=== PATIENT | male | born 1990 | race Caucasian/White ===

== ENCOUNTER 2017-05-11 16:26 | Emergency (ER) | payer SELFPAY ==
[2017-05-11 16:27] VITALS: BP 152/80; PULSE 99; RESP 16; TEMP 36.6; O2SAT 99; BMI 22.1
--- NOTE | 2017-05-11 17:15 | ED.DEP ---
ED Disposition - Plan for ED Patient: Chief Complaint: Dental Instructions: ED Tooth Pain Prescriptions: Naproxen [Naprosyn] 500 mg PO BID PRN #20 tablet Penicillin V Potassium 500 mg PO 4X/DAY #40 tablet Referrals: Care Physician,No Primary [Primary Care Provider] - Daria Bettencourt [NON-STAFF] -
--- NOTE | 2017-05-11 17:26 | ED.DCSUM_ITS ---
- ER Visit Summary Date of Service: 05/11/17 Chief Complaint: Dental pain History of Present Illness: The patient is a 26 M presenting with dental pain ?2 -3 days. Patient complains of left lower molar tenderness. He has an appointment with Daria lawrence tomorrow. He denies fever or swelling. He states he has been using Orajel with some improvement. Denies other complaints. Physical Examination: Vitals are stable. Patient is afebrile. Alert no acute distress. HEENT exam left lower molar decay and tenderness. No surrounding fluctuance. No sublingual edema. Neck is supple. Lungs are clear and equal bilaterally. Heart is regular rate and rhythm. Skin is warm and dry. Remainder of exam is unremarkable. Emergency Department Course and Treatment: Patient is given a prescription for Naprosyn, penicillin. Advised to keep his dental appointment tomorrow. Advised return ED for worsening complaints. Disposition: Discharge home Impression: Odontalgia This note was generated with [employer] dictation software. It may contain incorrect words, spelling, and punctuation that were not noted in review of the chart prior to signing ED Disposition - Plan for ED Patient: Chief Complaint: Dental Instructions: ED Tooth Pain Prescriptions: Naproxen [Naprosyn] 500 mg PO BID PRN #20 tablet Penicillin V Potassium 500 mg PO 4X/DAY #40 tablet Referrals: Daria Bettencourt [NON-STAFF] - Care Physician,No Primary [Primary Care Provider] -
== END 2017-05-11 17:30 | disposition home or self-care (01) ==
LOC: ED 17:25
PROVIDERS: Emergency Provider Emergency Medicine
DX: K08.89 Other specified disorders of teeth and supporting structures (principal); K02.9 Dental caries, unspecified; Z72.0 Tobacco use
CPT/HCPCS: 99282

== ENCOUNTER 2017-07-07 18:28 | Emergency (ER) | payer SELFPAY ==
[2017-07-07 18:28] VITALS: BP 152/98; PULSE 63; RESP 20; TEMP 36.6; O2SAT 98; BMI 22.1
[2017-07-07] MEDS: Dicyclomine 20 MG/2 ML Vial IM (19:29)
[2017-07-07] MEDS: Ketorolac 60 MG/2 ML Vial IM (20:15)
--- NOTE | 2017-07-07 21:14 | NURSING ---
PT IS REFUSING ALL OF HIS TEST AND ASKED TO BE SENT HOME WITH THE MEDICATION HE WAS PRESCRIBED THE LAST TIME.
--- NOTE | 2017-07-07 21:16 | ED.DCSUM_ITS ---
- ER Visit Summary Date of Service: 07/07/17 Chief Complaint: Abdominal pain History of Present Illness: The patient is a 26 M who states that yesterday he ate some pizza with banana peppers on it. He states that and a half hour he was having some diarrhea and gas. States that he has had small squirts of diarrhea ever since. He notes a cramping abdominal pain that is severe. He states that about 3 and half hours prior to arrival he was able to eat some hamburger helper. He said 2 glasses of milk 2 glasses of water glass of tea. He has not been vomiting. Physical Examination: Afebrile vital signs are stable Gen: Well-nourished well-developed patient is moving all around the bed almost in a flopping-like manner. Head: Normocephalic atraumatic Eyes: Perrl EOMI ENT: TMs clear no rhinorrhea moist mucous membranes Neck: Supple no lymphadenopathy no JVD nontender CVS: Regular rate rhythm no murmurs normal S1-S2 Respiratory: No distress clear to auscultation bilaterally chest nontender Abdomen: Soft tender to palpation diffusely out of proportion to the examination nondistended normal bowel sounds no masses Back: Nontender Extremity: Nontender no edema Skin: Normal color no rash Neuro: alert orientated ?3 CN II-XII intact normal strength sensation reflexes gait cerebellar Psych: Normal affect normal mood Test Results: Refused Emergency Department Course and Treatment: Patient was given a dose of Bentyl. This did not relieve his symptoms. He was given a dose of Toradol. Patient states that this did not relieve his symptoms. During which time that he was receiving his medications I did review several of his prior ER visits. Because his symptoms were not relieved I went ahead and ordered basic labs and a CT scan which he has refused stating that he wants to get a prescription for what he received the last time he was here with this. That was actually Bentyl which the patient states did nothing for him. But this is what the patient wanted so I will give him a prescription for Bentyl. I will have him sign out AGAINST MEDICAL ADVICE. I believe he has the capacity to make this decision. Impression:. 1. Acute abdominal pain 2. Left AGAINST MEDICAL ADVICE This note was generated with [employer] dictation software. It may contain incorrect words, spelling, and punctuation that were not noted in review of the chart prior to signing ED Disposition - Plan for ED Patient: Disposition: Home or Assisted Living Chief Complaint: Abd Pain Instructions: ED Abdominal Pain Unkn Cause Prescriptions: Dicyclomine HCl [Bentyl] 20 mg PO TIDAC #20 cap Referrals: Piedad Marin MD [STAFF PHYSICIAN] - (call to arrange follow up)
[2017-07-07 21:17] LABS: Absolute Lymphocyte Count 3.02 X10^3/ul (0.83-4.51); Absolute Neutrophil Count 5.7 X10^3/uL (2.0-7.7); Basophil# 0.02 X10^3/uL; Basophil% 0.2 % (0-1); Eosinophil# 0.05 X10^3/uL; Eosinophils% 0.5 % (0-5); Hematocrit 45.2 % (40-54); Hemoglobin 15.3 g/dl (13.0-16.5); Lymphocyte # 3.02 X10^3/ul (4.0); Lymphocyte % 31.6 % (19-41); Mean Corp Hgb Conc 33.8 g/gl (32-36); Mean Corpuscular Volume 85.6 fL (80-94); Mean Platelet Vol. 9.6 fl (6.2-12.0); Monocyte# 0.73 X10^3/uL; Monocyte% 7.6 % (0-10); Neutrophil # 5.73 X10^3/uL (2.7-7.7); Platelet Count 345 K/mm3 (150-450); RBC Distribution Width CV 13.1 % (11.6-14.6); Red Blood Count 5.28 M/mm3 (4.6-6.2); White Blood Count 9.6 K/mm3 (4.4-11.0)
[2017-07-07 21:21] LABS: POSITIVE COUNT NO; POSITIVE DIFFERENTIAL NO; POSITIVE MORPHOLOGY NO
[2017-07-07 21:24] LABS: ALB/GLOB Ratio 1.1 RATIO (0.9-2.4); AST(SGOT) 18 U/L (15-37); Alanine Aminotransfer ALT/SGPT 21 U/L (16-61); Albumin, Serum 4.1 g/dL (3.2-5.0); Alkaline Phosphatase 74 U/L (45-117); Anion Gap 6 (5-15); BUN 10 mg/dL (7-18); BUN/Creat Ratio 9.3 RATIO (10-20); Calcium,Total 9.4 mg/dL (8.5-10.1); Chloride 104 mmol/L (98-107); Creatinine, Serum 1.07 mg/dL (0.70-1.30); EST Glomerular Filtration Rate 90 mL/min (>60); Est Glom Filt Rate - Afr Amer 108 mL/min (>60); Estimated Creatinine Clearance 102.45 ml/min; Globulin 3.7 g/dL (2.2-4.2); Glucose 95 mg/dL (74-106); Lipase 124 U/L (73-393); Protein, Total 7.8 g/dL (6.4-8.2); Sodium Level 138 mmol/L (136-145)
--- NOTE | 2017-07-07 21:25 | NURSING ---
PT LEFT AMA.
[2017-07-07 21:26] VITALS: RESP 20
== END 2017-07-07 21:26 | disposition left against medical advice (07) ==
PROVIDERS: Emergency Provider Emergency Medicine
DX: R10.9 Unspecified abdominal pain (principal); R19.7 Diarrhea, unspecified; Z72.0 Tobacco use
CPT/HCPCS: 80053; 83690; 85025; 96372; 99283; A4216

== ENCOUNTER 2017-07-08 19:25 | Emergency (ER) | payer SELFPAY ==
[2017-07-08 19:26] VITALS: BP 131/74; PULSE 69; RESP 18; TEMP 37.1; O2SAT 99
--- NOTE | 2017-07-08 20:35 | ED.VISSUMM ---
- ER Visit Summary Date of Service: 07/08/17 Chief Complaint: Abdominal pain History of Present Illness: The patient is a 26 M complaining of abdominal pain after 3 days after eating pizza with spicy peppers on it. States it is a crampy sensation with a lot of gas. He is actually seen in the ER yesterday. Had negative labs including a CBC, BMP, liver and lipase. He returned today to be reevaluated. He stated they talked about a CAT scan yesterday but does not believe that he needs that. He is having loose stools but no vomiting. No melena. No fever. No dysuria. He has never had any abdominal surgeries. Physical Examination: Well-appearing young male. Vital signs are stable and afebrile. H EENT exam unremarkable. Neck nontender no lymphadenopathy. Lungs clear to auscultation bilaterally. Heart regular rate and rhythm no murmur. Abdomen is soft nondistended normal bowel sounds no peritoneal signs. He has no epigastric pain. He has no right upper quadrant tenderness or Tolliver's sign. He has no right lower quadrant or McBurney's point tenderness. There is no signs of a hernia or mass. There is no signs of obstruction. The pain is periumbilical. But is not really reproducible. Moving all 4 extremities. Back exam nontender. Neurologically is awake and alert. Test Results: Clinically the patient does not need a CAT scan. I reviewed all his labs from yesterday which were negative. He denied discussed and is comfortable not getting any further testing. Emergency Department Course and Treatment: Treated with p.o. Pepcid. Treatment Plan: Charge to home on Prilosec prescription and Mylicon. Disposition: Discharge Impression: Abdominal pain secondary to gastritis This note was generated with [employer] dictation software. It may contain incorrect words, spelling, and punctuation that were not noted in review of the chart prior to signing ED Disposition - Plan for ED Patient: Chief Complaint: Abd Pain Referrals: Care Physician,No Primary [Primary Care Provider] -
--- NOTE | 2017-07-08 20:40 | DCINST.ED_ITS ---
ED Disposition - Plan for ED Patient: Disposition: Home or Assisted Living Chief Complaint: Abd Pain Instructions: ED Abdominal Pain Unkn Cause, ED Gastritis Prescriptions: Omeprazole [Prilosec] 20 mg PO BID #20 cap SimETHICONE [Mylicon] 80 mg PO 4X/DAY #14 tab Referrals: Care Physician,No Primary [Primary Care Provider] - 1-2 Days if not improving Additional Instructions: Clementon diet increase slowly. I suspect that the spicy peppers upset your stomach causing a gastritis. The Prilosec will help calm the stomach down. And the Mylicon will help with gas. Return to the ER if you are feeling worse, develop vomiting or black or bloody stool or fever.
[2017-07-08] MEDS: Famotidine 20 MG Tablet 40 MG PO (20:45)
[2017-07-08 20:46] VITALS: RESP 18
[2017-07-08 22:20] VITALS: PULSE 124; RESP 30
== END 2017-07-08 20:47 | disposition home or self-care (01) ==
PROVIDERS: Emergency Provider Emergency Medicine
DX: K29.70 Gastritis, unspecified, without bleeding (principal); Z72.0 Tobacco use
CPT/HCPCS: 99283

== ENCOUNTER 2018-02-28 14:21 | Emergency (ER) | payer SELFPAY ==
[2018-02-28 14:21] VITALS: BP 141/55; PULSE 98; RESP 16; TEMP 36.3; O2SAT 97; BMI 23.6
--- NOTE | 2018-02-28 15:08 | ED.DCSUM_ITS ---
- ER Visit Summary Date of Service: 02/28/18 Chief Complaint: Dental pain History of Present Illness: The patient is a 27 M presents to the emergency department dental abscess. Patient states that he was recently treated for dental abscess by [facility] lawrence. He was on amoxicillin. He finished 10 days ago. He states that resolved. Over the past 2 days, has had increased swelling and pain. He denies any trouble speaking or swallowing. He states today, it broke open. He had some purulent drainage. He denies any fevers or chills. The patient takes no daily medications. Physical Examination: Exam is relatively unremarkable. Patient does have an abscess at the base of tooth 22. It is draining. His submental space is soft. He has no trismus. There is no stridor. His neck is supple. Test Results: [] Emergency Department Course and Treatment: The patient has a spontaneously draining dental abscess. He is already established with dentistry. He will be started on penicillin. He is given his first dose here. He was counseled on concerning symptoms and reasons to return. He will be discharged home. Treatment Plan: [] Disposition: Discharge Impression: Dental abscess This note was generated with [employer] dictation software. It may contain incorrect words, spelling, and punctuation that were not noted in review of the chart prior to signing ED Disposition - Plan for ED Patient: Disposition: Home or Assisted Living Chief Complaint: Dental Instructions: ED Abscess Dental Prescriptions: RX: Naproxen [Naprosyn] 500 mg PO BID PRN #20 tab RX: Penicillin V Potassium 500 mg PO 4X/DAY #40 tab Referrals: Care Physician,No Primary [Primary Care Provider] -
[2018-02-28] MEDS: Penicillin Vk 250 MG Tablet 500 MG PO (15:15)
== END 2018-02-28 15:21 | disposition home or self-care (01) ==
LOC: ED 15:20
PROVIDERS: Emergency Provider Emergency Medicine
DX: K04.7 Periapical abscess without sinus (principal); Z72.0 Tobacco use
CPT/HCPCS: 99283

== ENCOUNTER 2018-03-17 23:39 | Emergency (ER) | payer SELFPAY ==
[2018-03-17 23:41] VITALS: BP 128/81; PULSE 72; RESP 18; TEMP 36.9; O2SAT 96; BMI 22.4
--- NOTE | 2018-03-18 00:17 | ED.DCSUM_ITS ---
- ER Visit Summary Date of Service: 03/18/18 Chief Complaint: Abdominal pain History of Present Illness: The patient is a 27 M who presents with chief complaint of abdominal pain but then immediately states I really just here for a work note. He has a history of epigastric abdominal pain when he eats spicy or greasy food. He states it was worse last night but actually feels better and he only has mild discomfort currently. Denies any associated nausea vomiting diarrhea chest pain shortness of breath. He states work was supposed to start 10 minutes ago so he presented here for a note. Physical Examination: Afebrile vitals are normal Moist mucous membranes Heart regular rate and rhythm Lungs are clear Abdomen soft, mild epigastric tenderness no guarding no rebound Test Results: Deferred Emergency Department Course and Treatment: Patient refuses any diagnostic workup. He states that currently he is feeling better and he has had prior similar symptoms and does not want any workup but just presented for a work note. Patient discharged Treatment Plan: [] Disposition: Discharge Impression: Epigastric abdominal pain This note was generated with [employer] dictation software. It may contain incorrect words, spelling, and punctuation that were not noted in review of the chart prior to signing ED Disposition - Plan for ED Patient: Chief Complaint: Abd Pain Referrals: Care Physician,No Primary [Primary Care Provider] -
--- NOTE | 2018-03-18 00:17 | ED.DEP ---
ED Disposition - Plan for ED Patient: Chief Complaint: Abd Pain Instructions: ED Abdominal Pain Unkn Cause Referrals: Care Physician,No Primary [Primary Care Provider] -
--- OUTSIDE RECORDS SUMMARY | 2018-05-22 17:32 | XMS RPT_ITS ---
:1990 Author Organization [facility] Care Team Providers Name Role Phone Primay Care Physicia, No Primary Care Unavailable Daryl Ba Attending Unavailable Primay Care Physicia, No Primary Care Unavailable Feliz Sandoval Attending Unavailable Primay Care Physicia, No Primary Care Unavailable Debbie Zavala Attending Unavailable Primay Care Physicia, No Primary Care Unavailable Raji Darling Attending Unavailable Primay Care Physicia, No Primary Care Unavailable GuyChristopheAng Attending Unavailable PROBLEMS PROBLEMS DATE TYPE CONDITION / CODE ATTENDING STATUS SOURCE 07/10/2017 Unknown R10.9 - Raji Darling Active [place] Unspecified [facility] abdominal pain / Hospital R10.9(ICD-10) Repository PROCEDURES PROCEDURES No Procedure Records FoundRESULTS RESULTS DISCHARGE INSTRUCTION Observed: 03/18/2018 Status: F Source: THOR 12:17 AM [facility] REPOSITORY [facility] Medical Records Department [address] [place] [address] Discharge Instruction 03/18/18 0017 MR#: [id number] Acct: [id number] Name: SWATHI HI Rep #: [id number] : 1990 27 From: Feliz Sandoval MD PCP: Care Physician, No Primary Status: PRE ER ED Disposition - Plan for ED Patient: Chief Complaint: Abd Pain Instructions: ED Abdominal Pain Unkn Cause Referrals: Care Physician,No Primary [Primary Care Provider] - What to do if you have Problems For any increased pain, shortness of breath, bleeding, nausea or vomiting, chest pain, or any unexpected problems, contact your Primary Care Provider. Call [facility] ([phone]) or report to the closest Emergency Room. Call 911 if necessary. 03/18/18 0017 <Electronically signed by Feliz Sandoval MD> Date Feliz Sandoval MD Cosigner Signature (If Indicated): Date CC: No Primary Care Physician EMERGENCY DEPARTMENT Observed: 03/18/2018 Status: F Source: THOR SUMMARY 12:17 AM [facility] REPOSITORY [facility] Medical Records Department [address] [place] [address] Emergency Department Summary 03/18/18 0014 MR#: [id number] Acct: [id number] Name: SWATHI HI Rep #: [id number] : 1990 27 From: Feliz Sandoval MD PCP: Care Physician, No Primary Status: PRE ER - ER Visit Summary Date of Service: 03/18/18 Chief Complaint: Abdominal pain History of Present Illness: The patient is a 27 M who presents with chief complaint of abdominal pain but then immediately states I really just here for a work note. He has a history of epigastric abdominal pain when he eats spicy or greasy food. He states it was worse last night but actually feels better and he only has mild discomfort currently. Denies any associated nausea vomiting diarrhea chest pain shortness of breath. He states work was supposed to start 10 minutes ago so he presented here for a note. Physical Examination: Afebrile vitals are normal Moist mucous membranes Heart regular rate and rhythm Lungs are clear Abdomen soft, mild epigastric tenderness no guarding no rebound Test Results: Deferred Emergency Department Course and Treatment: Patient refuses any diagnostic workup. He states that currently he is feeling better and he has had prior similar symptoms and does not want any workup but just presented for a work note. Patient discharged Treatment Plan: [] Disposition: Discharge Impression: Epigastric abdominal pain This note was generated with MathZee dictation software. It may contain incorrect words, spelling, and punctuation that were not noted in review of the chart prior to signing ED Disposition - Plan for ED Patient: Chief Complaint: Abd Pain Referrals: Care Physician,No Primary [Primary Care Provider] - What to do if you have Problems For any increased pain, shortness of breath, bleeding, nausea or vomiting, chest pain, or any unexpected problems, contact your Primary Care Provider. Call [facility] ([phone]) or report to the closest Emergency Room. Call 911 if necessary. 03/18/18 0017 <Electronically signed by Feliz Sandoval MD> Date Feliz Sandoval MD Cosigner Signature (If Indicated): Date CC: No Primary Care Physician EMERGENCY DEPARTMENT Observed: 02/28/2018 Status: F Source: [place] SUMMARY 3:33 PM [facility] REPOSITORY [facility] Medical Records Department [address] [place] [address] Emergency Department Summary 02/28/18 1507 MR#: [id number] Acct: [id number] Name: SWATHI HI Rep #: [id number] : 1990 27 From: Daryl Ba MD PCP: Care Physician, No Primary Status: DEP ER - ER Visit Summary Date of Service: 02/28/18 Chief Complaint: Dental pain History of Present Illness: The patient is a 27 M presents to the emergency department dental abscess. Patient states that he was recently treated for dental abscess by [facility]. He was on amoxicillin. He finished 10 days ago. He states that resolved. Over the past 2 days, has had increased swelling and pain. He denies any trouble speaking or swallowing. He states today, it broke open. He had some purulent drainage. He denies any fevers or chills. The patient takes no daily medications. Physical Examination: Exam is relatively unremarkable. Patient does have an abscess at the base of tooth 22. It is draining. His submental space is soft. He has no trismus. There is no stridor. His neck is supple. Test Results: [] Emergency Department Course and Treatment: The patient has a spontaneously draining dental abscess. He is already established with dentistry. He will be started on penicillin. He is given his first dose here. He was counseled on concerning symptoms and reasons to return. He will be discharged home. Treatment Plan: [] Disposition: Discharge Impression: Dental abscess This note was generated with MathZee dictation software. It may contain incorrect words, spelling, and punctuation that were not noted in review of the chart prior to signing ED Disposition - Plan for ED Patient: Disposition: Home or Assisted Living Chief Complaint: Dental Instructions: ED Abscess Dental Prescriptions: RX: Naproxen [Naprosyn] 500 mg PO BID PRN #20 tab RX: Penicillin V Potassium 500 mg PO 4X/DAY #40 tab Referrals: Care Physician,No Primary [Primary Care Provider] - What to do if you have Problems For any increased pain, shortness of breath, bleeding, nausea or vomiting, chest pain, or any unexpected problems, contact your Primary Care Provider. Call [facility] ([phone]) or report to the closest Emergency Room. Call 911 if necessary. 02/28/18 1533 <Electronically signed by Daryl Ba MD> Date Daryl Ba MD Cosigner Signature (If Indicated): Date CC: No Primary Care Physician EMERGENCY DEPARTMENT Observed: 07/08/2017 Status: F Source: [place] SUMMARY 11:55 PM [facility] REPOSITORY [facility] Medical Records Department [address] [place] [address] Emergency Department Summary 07/08/172034 MR#: [id number] Acct: [id number] Name: SWATHI HI Rep #: [id number] : 1990 26 From: Ang Guy MD PCP: Care Physician, No Primary Status: DEP ER - ER Visit Summary Date of Service: 07/08/17 Chief Complaint: Abdominal pain History of Present Illness: The patient is a 26 M complaining of abdominal pain after 3 days after eating pizza with spicy peppers on it. States it is a crampy sensation with a lot of gas. He is actually seen in the ER yesterday. Had negative labs including a CBC, BMP, liver and lipase. He returned today to be reevaluated. He stated they talked about a CAT scan yesterday but does not believe that he needs that. He is having loose stools but no vomiting. No melena. No fever. No dysuria. He has never had any abdominal surgeries. Physical Examination: Well-appearing young male. Vital signs are stable and afebrile. H EENT exam unremarkable. Neck nontender no lymphadenopathy. Lungs clear to auscultation bilaterally. Heart regular rate and rhythm no murmur. Abdomen is soft nondistended normal bowel sounds no peritoneal signs. He has no epigastric pain. He has no right upper quadrant tenderness or Tolliver's sign. He has no right lower quadrant or McBurney's point tenderness. There is no signs of a hernia or mass. There is no signs of obstruction. The pain is periumbilical. But is not really reproducible. Moving all 4 extremities. Back exam nontender. Neurologically is awake and alert. Test Results: Clinically the patient does not need a CAT scan. I reviewed all his labs from yesterday which were negative. He denied discussed and is comfortable not getting any further testing. Emergency Department Course and Treatment: Treated with p.o. Pepcid. Treatment Plan: Charge to home on Prilosec prescription and Mylicon. Disposition: Discharge Impression: Abdominal pain secondary to gastritis This note was generated with MathZee dictation software. It may contain incorrect words, spelling, and punctuation that were not noted in review of the chart prior to signing ED Disposition - Plan for ED Patient: Chief Complaint: Abd Pain Referrals: Care Physician,No Primary [Primary Care Provider] - What to do if you have Problems For any increased pain, shortness of breath, bleeding, nausea or vomiting, chest pain, or any unexpected problems, contact your Primary Care Provider. Call [facility] ([phone]) or report to the closest Emergency Room. Call 911 if necessary. 07/08/17 8227 <Electronically signed by Ang Guy MD> Date Ang Guy MD Cosigner Signature (If Indicated): Date CC: No Primary Care Physician DISCHARGE INSTRUCTION Observed: 07/08/2017 Status: F Source: [facility]OR 11:55 PM [facility] Medical Records Department [address] [place] [address] Discharge Instruction 07/08/172036 MR#: [id number] Acct: [id number] Name: SWATHI HI Rep #: [id number] : 1990 26 From: Ang Guy MD PCP: Care Physician, No Primary Status: DEP ER ED Disposition - Plan for ED Patient: Disposition: Home or Assisted Living Chief Complaint: Abd Pain Instructions: ED Abdominal Pain Unkn Cause, ED Gastritis Prescriptions: Omeprazole [Prilosec] 20 mg PO BID #20 cap SimETHICONE [Mylicon] 80 mg PO 4X/DAY #14 tab Referrals: Care Physician,No Primary [Primary Care Provider] - 1-2 Days if not improving Additional Instructions: [place] diet increase slowly. I suspect that the spicy peppers upset your stomach causing a gastritis. The Prilosec will help calm the stomach down. And the Mylicon will help with gas. Return to the ER if you are feeling worse, develop vomiting or black or bloody stool or fever. What to do if you have Problems For any increased pain, shortness of breath, bleeding, nausea or vomiting, chest pain, or any unexpected problems, contact your Primary Care Provider. Call [facility] ([phone]) or report to the closest Emergency Room. Call 911 if necessary. 07/08/17 4880 <Electronically signed by Ang Guy MD> Date Ang Guy MD Cosigner Signature (If Indicated): Date CC: No Primary Care Physician EMERGENCY DEPARTMENT Observed: 07/08/2017 Status: F Source: [place] SUMMARY 12:08 AM [facility] REPOSITORY [facility] Medical Records Department [address] [place] [address] Emergency Department Summary 07/07/172113 MR#: [id number] Acct: [id number] Name: SWATHI HI Rep #: [id number] : 1990 26 From: Raji Darling DO PCP: Care Physician, No Primary Status: DEP ER - ER Visit Summary Date of Service: 07/07/17 Chief Complaint: Abdominal pain History of Present Illness: The patient is a 26 M who states that yesterday he ate some pizza with banana peppers on it. He states that and a half hour he was having some diarrhea and gas. States that he has had small squirts of diarrhea ever since. He notes a cramping abdominal pain that is severe. He states that about 3 and half hours prior to arrival he was able to eat some hamburger helper. He said 2 glasses of milk 2 glasses of water glass of tea. He has not been vomiting. Physical Examination: Afebrile vital signs are stable Gen: Well-nourished well-developed patient is moving all around the bed almost in a flopping-like manner. Head: Normocephalic atraumatic Eyes: Perrl EOMI ENT: TMs clear no rhinorrhea moist mucous membranes Neck: Supple no lymphadenopathy no JVD nontender CVS: Regular rate rhythm no murmurs normal S1-S2 Respiratory: No distress clear to auscultation bilaterally chest nontender Abdomen: Soft tender to palpation diffusely out of proportion to the examination nondistended normal bowel sounds no masses Back: Nontender Extremity: Nontender no edema Skin: Normal color no rash Neuro: alert orientated 3 CN II-XII intact normal strength sensation reflexes gait cerebellar Psych: Normal affect normal mood Test Results: Refused Emergency Department Course and Treatment: Patient was given a dose of Bentyl. This did not relieve his symptoms. He was given a dose of Toradol. Patient states that this did not relieve his symptoms. During which time that he was receiving his medications I did review several of his prior ER visits. Because his symptoms were not relieved I went ahead and ordered basic labs and a CT scan which he has refused stating that he wants to get a prescription for what he received the last time he was here with this. That was actually Bentyl which the patient states did nothing for him. But this is what the patient wanted so I will give him a prescription for Bentyl. I will have him sign out AGAINST MEDICAL ADVICE. I believe he has the capacity to make this decision. Impression:. 1. Acute abdominal pain 2. Left AGAINST MEDICAL ADVICE This note was generated with MathZee dictation software. It may contain incorrect words, spelling, and punctuation that were not noted in review of the chart prior to signing ED Disposition - Plan for ED Patient: Disposition: Home or Assisted Living Chief Complaint: Abd Pain Instructions: ED Abdominal Pain Unkn Cause Prescriptions: Dicyclomine HCl [Bentyl] 20 mg PO TIDAC #20 cap Referrals: Piedad Marin MD [STAFF PHYSICIAN] - (call to arrange follow up) What to do if you have Problems For any increased pain, shortness of breath, bleeding, nausea or vomiting, chest pain, or any unexpected problems, contact your Primary Care Provider. Call [facility] ([phone]) or report to the closest Emergency Room. Call 911 if necessary. 07/08/17 0008 <Electronically signed by Raji Darling DO> Date Raji Darling DO Cosigner Signature (If Indicated): Date CC: No Primary Care Physician CBC W/DIFF, AUTOMATED Collected: 07/07/2017 Status: F Source: THOR 6:47 PM [facility] REPOSITORY TYPE CODE TESTS RESULT OUT OF RANGE REFERENCE UNITS LAB L100.1000 4.4-11.0 K/mm3 Normal WBC 9.6 LAB L100.1200 4.6-6.2 M/mm3 Normal RBC 5.28 LAB L100.1300 13.0-16.5 g/dl Normal HGB 15.3 LAB L100.1400 40-54 % Normal HCT 45.2 LAB L100.1500 80-94 fL Normal MCV 85.6 LAB L100.1600 27.0-32.0 pg Normal MCH 29.0 LAB L100.1700 32-36 g/gl Normal MCHC 33.8 LAB L100.1810 11.6-14.6 % Normal RDW CV 13.1 LAB L100.1820 35.1-43.9 fl Normal RDW SD 41.0 LAB L100.1900 150-450 K/mm3 Normal PLT 345 LAB L100.2000 6.2-12.0 fl Normal MPV 9.6 LAB L100.2100 47-70 % Normal NEUT% 60.0 LAB L100.2200 19-41 % Normal LY% 31.6 LAB L100.2300 0-10 % Normal MONO% 7.6 LAB L100.2400 0-5 % Normal EO% 0.5 LAB L100.2500 0-1 % Normal BASO% 0.2 LAB L100.2550 0.0-0.9 % Normal IM GRAN % 0.100 Result Comment: IG% - Immature Granulocytes (promyelocytes, myelocytes and metamyelocytes) > 1% indicates that a LEFT SHIFT is Present. LAB L100.2620 2.0-7.7 X10 3/uL Normal Absolute Neut 5.7 LAB L100.2720 0.83-4.51 X10 3/ul Normal Absolute Lymph 3.02 Performed By: #### L100.0100 #### [facility] [address] [place], [place], [address] COMPREHENSIVE METABOLIC Collected: 07/07/2017 Status: F Source: [facility] 6:47 PM [facility] REPOSITORY TYPE CODE TESTS RESULT OUT OF RANGE REFERENCE UNITS LAB L501.0100 74-106 mg/dL Normal GLU 95 Result Comment: Please note revised GLUCOSE reference range effective 2017. LAB L501.1000 7-18 mg/dL Normal BUN 10 LAB L501.1100 0.70-1.30 mg/dL Normal CREAT,SERUM 1.07 Result Comment: The validity of the calculated GFR AND GFRAA in patients over 70 years has not been determined. Clinical correlation is essential. LAB L501.1110 >60 mL/min Normal EST GFR 90 Result Comment: Non- GFR Calc LAB L501.1115 >60 mL/min Normal EST GFR - AA 108 Result Comment: GFR Calc LAB L501.1255 ml/min Normal Estimated CRCL 102.45 LAB L501.1300 10-20 RATIO Low BUN/CRE 9.3 LAB L501.1500 6.4-8. g/dL 2 T PROT Normal 7.8 LAB L501.1800 3.2-5. g/dL 0 ALB Normal 4.1 LAB L501.1950 2.2-4. g/dL 2 GLOB Normal 3.7 LAB L501.2000 0.9-2. RATIO 4 A/G Normal 1.1 LAB L501.2200 8.5-10 mg/dL .1 CA Normal 9.4 LAB L501.4100 15-37 U/L AST Normal 18 LAB L501.4305 45-117 U/L ALK P Normal 74 LAB L501.4405 16-61 U/L ALT Normal 21 LAB L501.4600 0.20-1 mg/dL .00 T BILI Normal 0.40 LAB L501.5300 136-14 mmol/L 5 NA Normal 138 LAB L501.5600 3.5-5. mmol/L 1 K Normal 4.0 LAB L501.5900 98-107 mmol/L CL Normal 104 LAB L501.6100 21.0-3 mmol/L 2.0 CO2 Normal 28.0 LAB L501.6200 5-15 GAP Normal 6 Performed By: #### L500.4050, L501.2450 #### [facility] [address] [place], [address] LIPASE Collected: 07/07/2017 Status: F Source: [place] 6:47 PM [facility] REPOSITORY TYPE CODE TESTS RESULT OUT OF RANGE REFERENCE UNITS LAB L501.2450 73-393 U/L Normal LIPASE 124 Performed By: #### L500.4050, L501.2450 #### [facility] [address] [place], [address] PROGRESS Observed: 07/07/2017 Status: COMPLETED Source: [place] 1:43 PM [facility] REPOSITORY HNO ID: [id number] Author: Rayne Varma (Wolf Hunter) Service: (none) Author Type: Nurse Practitioner Type: Progress Notes Filed: 07/07/2017 2:00 PM Note Text: Subjective HPI Swathi Hi is a 26 year old male who presents with a pain in his abdomen, states it is a sharp and cramping and bloating feeling. He said it was worse last night and notices it after he eats spicy foods. Yesterday he ate banana peppers and afterwards had abdominal pain and belching. He denies pain currently. Elevated BP noted on rooming intake. Review of Systems Constitutional: Negative. Negative for fever. Respiratory: Negative. Negative for cough. Cardiovascular: Negative for chest pain. Gastrointestinal: Positive for abdominal pain and nausea. Negative for constipation, diarrhea and vomiting. BP 138/98 Pulse 92 Temp 36.8 ?C (98.2 ?F) (Tympanic) Resp 18 Wt 66.7 kg (147 lb) No past medical history on file. No past surgical history on file. ALLERGIES Patient has no known allergies. MEDICATIONS No prescriptions on file. No family history on file. Social History Substance Use Topics - Smoking status: Current Every Day Smoker Types: Cigarettes - Smokeless tobacco: Never Used Comment: 5 cigarettes per day - Alcohol use Not on file Objective Physical Exam Constitutional: He is well-developed, well-nourished, and in no distress. HENT: Head: Normocephalic. Eyes: Conjunctivae are normal. Right eye exhibits no discharge. Left eye exhibits no discharge. Neck: Neck supple. Cardiovascular: Normal rate, regular rhythm and normal heart sounds. Pulmonary/Chest: Effort normal and breath sounds normal. No respiratory distress. He has no wheezes. He has no rales. Abdominal: Soft. Bowel sounds are normal. He exhibits no distension and no mass. There is no hepatosplenomegaly. There is no tenderness. There is no guarding. Lymphadenopathy: He has no cervical adenopathy. Neurological: He is alert. Skin: Skin is warm and dry. No rash noted. Nursing note and vitals reviewed. ASSESSMENT/PLAN: 1. Gastroesophageal reflux disease, esophagitis presence not specified - ICD9: 530.81, ICD10: K21.9 - Discussed lifestyle modifications including losing weight and head of bed elevation, avoiding spicy foods. - Begin treatment with Prilosec 20 mg QD - Assisted patient with appointment to establish care with PCP. 2. Elevated blood pressure reading without diagnosis of hypertension - ICD9: 796.2, ICD10: R03.0 - Recommended regular aerobic exercise. - Recheck in 1 week with nurse visit, sooner if needed. - Reviewed risks of HTN and principles of treatment Work note provided for today's visit. - Follow-up with your PCP in 3-5 days if symptoms have not improved or sooner if symptoms worsen - Discussed red flags and need for immediate medical evaluation if any occur. - Discussed supportive care treatment with fluids, rest and analgesia. - Discussed expected course of illness HUI Sandhu APRN.CNP CNOV Observed: 07/07/2017 Status: COMPLETED Source: [place] 1:30 PM [facility] REPOSITORY Office Visit (WSTR) SWATHI HI ([id number]) 1990 M Date Time Provider Department 07/07/17 1:30 PM RAYNE VARMA (NITHYA) WSTR During your visit today, we recorded the following information about you: Temperature Pulse Respiration Blood pressure 98.2 degrees 92/minute 18/minute 138/98 Weight 66.7 kg Rayne Varma (Nithya) 07/07/2017 2:00 PM Signed Subjective HPI Swathi Sanchez Sussy is a 26 year old male who presents with a pain in his abdomen, states it is a sharp and cramping and bloating feeling. He said it was worse last night and notices it after he eats spicy foods. Yesterday he ate banana peppers and afterwards had abdominal pain and belching. He denies pain currently. Elevated BP noted on rooming intake. Review of Systems Constitutional: Negative. Negative for fever. Respiratory: Negative. Negative for cough. Cardiovascular: Negative for chest pain. Gastrointestinal: Positive for abdominal pain and nausea. Negative for constipation, diarrhea and vomiting. BP 138/98 Pulse 92 Temp 36.8 ?C (98.2 ?F) (Tympanic) Resp 18 Wt 66.7 kg (147 lb) No past medical history on file. No past surgical history on file. ALLERGIES Patient has no known allergies. MEDICATIONS No prescriptions on file. No family history on file. Social History Substance Use Topics - Smoking status: Current Every Day Smoker Types: Cigarettes - Smokeless tobacco: Never Used Comment: 5 cigarettes per day - Alcohol use Not on file Objective Physical Exam Constitutional: He is well-developed, well-nourished, and in no distress. HENT: Head: Normocephalic. Eyes: Conjunctivae are normal. Right eye exhibits no discharge. Left eye exhibits no discharge. Neck: Neck supple. Cardiovascular: Normal rate, regular rhythm and normal heart sounds. Pulmonary/Chest: Effort normal and breath sounds normal. No respiratory distress. He has no wheezes. He has no rales. Abdominal: Soft. Bowel sounds are normal. He exhibits no distension and no mass. There is no hepatosplenomegaly. There is no tenderness. There is no guarding. Lymphadenopathy: He has no cervical adenopathy. Neurological: He is alert. Skin: Skin is warm and dry. No rash noted. Nursing note and vitals reviewed. ASSESSMENT/PLAN: 1. Gastroesophageal reflux disease, esophagitis presence not specified - ICD9: 530.81, ICD10: K21.9 - Discussed lifestyle modifications including losing weight and head of bed elevation, avoiding spicy foods. - Begin treatment with Prilosec 20 mg QD - Assisted patient with appointment to establish care with PCP. 2. Elevated blood pressure reading without diagnosis of hypertension - ICD9: 796.2, ICD10: R03.0 - Recommended regular aerobic exercise. - Recheck in 1 week with nurse visit, sooner if needed. - Reviewed risks of HTN and principles of treatment Work note provided for today's visit. - Follow-up with your PCP in 3-5 days if symptoms have not improved or sooner if symptoms worsen - Discussed red flags and need for immediate medical evaluation if any occur. - Discussed supportive care treatment with fluids, rest and analgesia. - Discussed expected course of illness Rayne Varma APRN.NITHYA Varma APRN.Rayne Lopez (Wolf Hunter) 07/07/2017 1:48 PM Signed Try OTC Pepcid or Zantac 150 daily. (OMEPRAZOLE) May continue TUMS or Rolaids as needed. No eating within 2 hours of going to bed. May want to elevate the head of your bed. Avoid caffeine, chocolate, alcohol, spicy foods, acidic foods, fried foods, mint flavoring. Call or return to the office if your symptoms change, worsen, or fail to improve. Referring Provider: SELF [200] Allergies As of Date: 07/07/2017 (No Known Allergies) Date Reviewed: 07/07/2017 Reviewed by: Rayne Varma ([facility]) - Fully Assessed Reason for Visit: Abdominal Pain [1] Cmt: AND diarrhea since yesterday after eating pizza Primary Visit Diagnosis:Gastroesophageal reflux disease, esophagitis presence not specified [K21.9] Other Visit Diagnosis:Elevated blood pressure reading without diagnosis of hypertension [R03.0] Problem List As Of Date: 07/07/2017 (None) Other instructions from your clinician: Try OTC Pepcid or Zantac 150 daily. (OMEPRAZOLE) May continue TUMS or Rolaids as needed. No eating within 2 hours of going to bed. May want to elevate the head of your bed. Avoid caffeine, chocolate, alcohol, spicy foods, acidic foods, fried foods, mint flavoring. Call or return to the office if your symptoms change, worsen, or fail to improve. Letter Text Rayne Varma APRN.CNP Urgent Care [address] [facility] [address] Dept: [phone] 07/07/2017 Swathi Hi [address] [facility] [address] To Whom it May Concern: This is to certify that Swathi Hi was seen at our office for medical care. Swathi may return to work on 07/08/2017. If you have any questions please feel free to call. Sincerely: Rayne Varma APRN.[facility] Encounter Status:Closed by RAYNE VARMA on 07/07/17 EMERGENCY DEPARTMENT Observed: 05/11/2017 Status: F Source: [place] SUMMARY 5:26 PM [facility] [place] REPOSITORY [facility] Medical Records Department [address] [place] [address] Emergency Department Summary 05/11/17 1723 MR#: [id number] Acct: [id number] Name: SWATHI HI Rep #: [id number] : 1990 26 From: Debbie Zavala MD PCP: Care Physician, No Primary Status: REG ER - ER Visit Summary Date of Service: 05/11/17 Chief Complaint: Dental pain History of Present Illness: The patient is a 26 M presenting with dental pain 2-3 days. Patient complains of left lower molar tenderness. He has an appointment with Daria lawrence tomorrow. He denies fever or swelling. He states he has been using Orajel with some improvement. Denies other complaints. Physical Examination: Vitals are stable. Patient is afebrile. Alert no acute distress. HEENT exam left lower molar decay and tenderness. No surrounding fluctuance. No sublingual edema. Neck is supple. Lungs are clear and equal bilaterally. Heart is regular rate and rhythm. Skin is warm and dry. Remainder of exam is unremarkable. Emergency Department Course and Treatment: Patient is given a prescription for Naprosyn, penicillin. Advised to keep his dental appointment tomorrow. Advised return ED for worsening complaints. Disposition: Discharge home Impression: Odontalgia This note was generated with [employer] dictation software. It may contain incorrect words, spelling, and punctuation that were not noted in review of the chart prior to signing ED Disposition - Plan for ED Patient: Chief Complaint: Dental Instructions: ED Tooth Pain Prescriptions: Naproxen [Naprosyn] 500 mg PO BID PRN #20 tablet Penicillin V Potassium 500 mg PO 4X/DAY #40 tablet Referrals: Daria Bettencourt [NON-STAFF] - Care Physician,No Primary [Primary Care Provider] - What to do if you have Problems For any increased pain, shortness of breath, bleeding, nausea or vomiting, chest pain, or any unexpected problems, contact your Primary Care Provider. Call [facility] ([phone]) or report to the closest Emergency Room. Call 911 if necessary. 05/11/17 1726 <Electronically signed by Debbie Zavala MD> Date Debbie Zavala MD Cosigner Signature (If Indicated): Date CC: No Primary Care Physician DISCHARGE INSTRUCTION Observed: 05/11/2017 Status: F Source: [place] 5:16 PM [facility] REPOSITORY [facility] Medical Records Department [address] [place] [address] Discharge Instruction 05/11/171714 MR#: [id number] Acct: [id number] Name: SWATHI HI Rep #: [id number] : 1990 26 From: Debbie Zavala MD PCP: Care Physician, No Primary Status: PRE ER ED Disposition - Plan for ED Patient: Chief Complaint: Dental Instructions: ED Tooth Pain Prescriptions: Naproxen [Naprosyn] 500 mg PO BID PRN #20 tablet Penicillin V Potassium 500 mg PO 4X/DAY #40 tablet Referrals: Care Physician,No Primary [Primary Care Provider] - Daria Bettencourt [NON-STAFF] - What to do if you have Problems For any increased pain, shortness of breath, bleeding, nausea or vomiting, chest pain, or any unexpected problems, contact your Primary Care Provider. Call [facility] ([phone]) or report to the closest Emergency Room. Call 911 if necessary. 05/11/171715 <Electronically signed by Debbie Zavala MD> Date Debbie Zavala MD Cosigner Signature (If Indicated): Date CC: No Primary Care Physician ALLERGIES ALLERGIES DATE TYPE / CODE NAME / CODE REACTION SEVERITY SOURCE 03/17/2018 Drug No Known Unknown [facility] Allergy/416 Allergies/C40055 Hospital 324256(SNOM 0388(RXNORM) Repository ED CT) Drug NO KNOWN [facility] Class/81448 ALLERGIES [address] [place] 1003(SNOMED Repository CT) ENCOUNTERS ENCOUNTERS ADMIT/DISCHARGE ACCOUNT ADMITTING ENCOUNTER LOCATION SOURCE NUMBER CLASS 03/17/2018/03/18/19 [id number] Emergency [address] ing:ED Repository 02/28/2018/02/29/20 [id number] Emergency [address] ing:ED Repository 07/08/2017/07/09/19 [id number] Emergency [address] ing:ED Repository 07/07/2017/07/08/19 [id number] Emergency [address] ing:ED Repository 07/07/2017/07/09/19 [id number] Ambulatory [address] Repository 05/11/2017/05/12/19 [id number] Emergency [address] ing:ED Repository PAYERS PAYERS ENCOUNTER GUARANTOR PAYER SUBSCRIBER SOURCE 03/17/2018 TIMMOTHY DARLENE Primary NOT GIVENUNK [id number] Insurance:SELF PAY [facility] [id number]: (330) Number: Effective Repository [phone] () Date:2018-03-17 02/28/2018 TIMMOTHY DARLENE Primary NOT GIVENUNK [id number] Insurance:SELF PAY [facility] [id number]: (330) Number: Effective Repository [phone] () Date:2018-02-28 07/08/2017 TIMMOTHY A Primary NOT GIVENUNK [id number] Insurance:SELF PAY [facility] [id number]: (330) Number: Effective Repository [phone] () Date:2017-07-08 07/07/2017 TIMMOTHY A Primary NOT GIVENUNK [place] [id number] Insurance:SELF PAY [facility] [id number]: ([phone]) Number: Effective Repository [phone] () Date:2017-07-07 05/11/2017 TIMMOTHY A Primary NOT GIVENUNK [place] [id number] Insurance:SELF PAY [address] Number: Effective Repository [phone]: ([phone]) Date:2017-05-11 [phone] ()
== END 2018-03-18 00:30 | disposition home or self-care (01) ==
LOC: ED 03-18 00:22
PROVIDERS: Emergency Provider Emergency Medicine
DX: R10.13 Epigastric pain (principal); Z72.0 Tobacco use
CPT/HCPCS: 99282